=== PATIENT | female | born 1990 | race American Indian/Alaskan Native ===

== ENCOUNTER 2018-10-29 05:10 | Emergency (ER) | payer BC ==
[2018-10-29] MEDS ORDERED: MAGNE/ALUM HYDROXD 30 ML UCUP ONE (05:46)
[2018-10-29] MEDS ORDERED: LIDOCAINE VISCOUS 2% SOLN 15 ML UDC ONE (05:46)
[2018-10-29] MEDS ORDERED: ONDANSETRON 4 MG/2 ML VIAL ONE (06:57)
[2018-10-29] MEDS ORDERED: NA CHLORIDE 0.9% 1,000 ML ONE (06:57)
[2018-10-29] MEDS ORDERED: MORPHINE 2 MG/ML SYR ONE (07:00)
[2018-10-29] MEDS ORDERED: PANTOPRAZOLE 40 MG INJ ONE (07:00)
[2018-10-29 07:14] LABS: Absolute Lymphocytes (CBC) 2.1 K/uL (0.7-4.9); Absolute Monocytes 0.7 K/uL (0.1-1.3); Basophils % 0.5 % (0-1.3); Eosinophils % 2.2 % (0-4.4); Hematocrit 37.2 % (36.0-45.0); Lymphocytes % 29.8 % (15.3-44.8); MPV 10.9 fL (7.6-11.3); Monocytes % 10.5 % (3.3-12.3); RBC Red Blood Cell Count 4.59 M/uL (3.86-4.86)
--- NOTE | 2018-10-29 07:16 | ER ---
Nurse's Notes [facility] Name: [facility] Age: 27 yrs Sex: Female : 1990 Arrival Date: 10/29/2018 Time: 05:12 Bed 7 Private MD: Daisy Jimenez K Diagnosis: Gastritis, unspecified Presentation: 10/29 05:24 Presenting complaint: Patient states: she started having chest pain yesterday worsening bb today pt is pointing to epigastric area and says the pain is constant 6/10 pt denies nausea, vomiting or diarrhea but does have some shortness of breath. Transition of care: patient was not received from another setting of care. Onset of symptoms was October 28, 2018. Risk Assessment: Do you want to hurt yourself or someone else? Patient reports no desire to harm self or others. Initial Sepsis Screen: Does the patient meet any 2 criteria? No. Patient's initial sepsis screen is negative. Does the patient have a suspected source of infection? No. Patient's initial sepsis screen is negative. Care prior to arrival: None. 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 - Social history:: Smoking status: Patient/guardian denies using tobacco, Patient uses alcohol, occasionally. Patient/guardian denies using street drugs. - Ebola Screening: : No symptoms or risks identified at this time. Screenin:41 Abuse screen: Denies threats or abuse. Denies injuries from another. Nutritional ak1 screening: No deficits noted. Tuberculosis screening: No symptoms or risk factors identified. Fall Risk None identified. Assessment: 05:39 Pain: Pain began. ak1 05:41 General: Appears in no apparent distress. Behavior is calm, cooperative. Pain: Pain ak1 does not radiate. pt points to epigastric area when asked about pain. pt state she had taco bautista for dinner last night. Neuro: No deficits noted. Cardiovascular: No deficits noted. Respiratory: No deficits noted. GI: Reports epigastric pain. : No signs and/or symptoms were reported regarding the genitourinary system. EENT: No signs and/or symptoms were reported regarding the EENT system. Derm: No signs and/or symptoms reported regarding the dermatologic system. Musculoskeletal: No signs and/or symptoms reported regarding the musculoskeletal system. 06:14 Reassessment: Patient appears in no apparent distress at this time. Patient and/or ak1 family updated on plan of care and expected duration. Pain level reassessed. Patient is alert, oriented x 3, equal unlabored respirations, skin warm/dry/pink. 07:41 Reassessment: Patient appears in no apparent distress at this time. Patient and/or ph family updated on plan of care and expected duration. Pain level reassessed. Patient is alert, oriented x 3, equal unlabored respirations, skin warm/dry/pink. Pt d/c home w/ family. Vital Signs: 05:28 BP 134 / 89; Pulse 78; Resp 16 S; Temp 99.3(O); Pulse Ox 100% on R/A; Weight 88.45 kg bb (R); Height 5 ft. 5 in. (165.10 cm) (R); Pain 6/10; 06:14 BP 119 / 90; Pulse 78; Resp 16; Pulse Ox 98% on R/A; ak1 07:01 BP 125 / 76; Pulse 100; Resp 18; Pulse Ox 99% on R/A; tl2 07:43 BP 127 / 82; Pulse 81; Resp 18; Temp 98.0; Pulse Ox 99% on R/A; ph 05:28 Body Mass Index 32.45 (88.45 kg, 165.10 cm) bb ED Course: 05:12 Patient arrived in ED. es 05:12 Daisy Jimenez MD is Private Physician. es 05:27 Triage completed. bb 05:28 Arm band placed on Patient placed in an exam room, on a stretcher, on pulse oximetry. bb 05:30 Slick Cline MD is Attending Physician. tw4 05:38 Patient has correct armband on for positive identification. Bed in low position. Call ak1 light in reach. Side rails up X 1. Pulse ox on. NIBP on. 05:38 Patient maintains SpO2 saturation greater than 95% on room air. ak1 06:30 Inserted saline lock: 20 gauge in right antecubital area, using aseptic technique. tl2 Blood collected. 07:15 Daisy Jimenez MD is Referral Physician. tw4 07:16 Charity Salvador RN is Primary Nurse. ph 07:41 No provider procedures requiring assistance completed. IV discontinued, intact, ph bleeding controlled, No redness/swelling at site. Pressure dressing applied. Administered Medications: 05:38 Drug: GI Cocktail without - (Maalox Suspension 30 ml, Lidocaine Liquid 2 % 15 ak1 ml) Route: PO; 07:00 Follow up: Response: No adverse reaction tl2 06:59 Drug: ProTONIX 40 mg Route: IVP; Site: right antecubital; tl2 07:42 Follow up: Response: No adverse reaction ph 06:59 Drug: Zofran 4 mg Route: IVP; Site: right antecubital; tl2 07:42 Follow up: Response: No adverse reaction ph 06:59 Drug: morphine 2 mg Route: IVP; Site: right antecubital; tl2 07:42 Follow up: Response: No adverse reaction ph 07:00 Drug: NS 0.9% 1000 ml Route: IV; Rate: 1 bolus; Site: right antecubital; tl2 07:42 Follow up: Response: No adverse reaction; IV Status: Completed infusion ph Outcome: 07:16 Discharge ordered by . tw4 07:41 Discharged to home ambulatory, with family. ph 07:41 Condition: good 07:41 Discharge instructions given to patient, Instructed on discharge instructions, follow up and referral plans. medication usage, Demonstrated understanding of instructions, follow-up care, medications, Prescriptions given X 2. 07:44 Patient left the ED. ph Signatures: Marcie Roach Brenda RN RN Luzma Jackson RN RN ak1 Charity Salvador RN RN ph Knox, Taylor, RN RN tl2 Slick Cline MD MD tw4
--- NOTE | 2018-10-29 07:17 | EDPHYS ---
Physician Documentation [facility] Name: [facility] Age: 27 yrs Sex: Female : 1990 Arrival Date: 10/29/2018 Time: 05:12 Bed 7 Private MD: Daisy Jimenez K ED Physician Slick Cline HPI: 10/29 05:37 This 27 yrs old Other Female presents to ER via Ambulatory with complaints of Chest tw4 Pain. 05:37 The pain does not radiate. Associated signs and symptoms: The patient has no apparent tw4 associated signs or symptoms. The chest pain is described as dull. Duration: epigastric area, The patient or guardian reports a single episode, that is now resolved. Modifying factors: The symptoms are alleviated by nothing. the symptoms are aggravated by nothing. The patient has not experienced similar symptoms in the past. 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 - Social history:: Smoking status: Patient/guardian denies using tobacco, Patient uses alcohol, occasionally. Patient/guardian denies using street drugs. - Ebola Screening: : No symptoms or risks identified at this time. ROS: 05:37 Constitutional: Negative for fever, chills, and weight loss, Cardiovascular: Negative tw4 for chest pain, palpitations, and edema, Respiratory: Negative for shortness of breath, cough, wheezing, and pleuritic chest pain, Back: Negative for injury and pain, MS/Extremity: Negative for injury and deformity, Skin: Negative for injury, rash, and discoloration, Neuro: Negative for headache, weakness, numbness, tingling, and seizure. Exam: 05:37 Constitutional: This is a well developed, well nourished patient who is awake, alert, tw4 and in no acute distress. Head/Face: Normocephalic, atraumatic. Chest/axilla: Normal chest wall appearance and motion. Nontender with no deformity. No lesions are appreciated. Cardiovascular: Regular rate and rhythm with a normal S1 and S2. No gallops, murmurs, or rubs. Normal PMI, no JVD. No pulse deficits. Respiratory: Lungs have equal breath sounds bilaterally, clear to auscultation and percussion. No rales, rhonchi or wheezes noted. No increased work of breathing, no retractions or nasal flaring. Back: No spinal tenderness. No costovertebral tenderness. Full range of motion. MS/ Extremity: Pulses equal, no cyanosis. Neurovascular intact. Full, normal range of motion. Neuro: Awake and alert, GCS 15, oriented to person, place, time, and situation. Cranial nerves II-XII grossly intact. Motor strength 5/5 in all extremities. Sensory grossly intact. Cerebellar exam normal. Normal gait. 05:37 Abdomen/GI: Inspection: abdomen appears normal, Bowel sounds: normal, Palpation: mild abdominal tenderness, in the epigastric area. Vital Signs: 05:28 BP 134 / 89; Pulse 78; Resp 16 S; Temp 99.3(O); Pulse Ox 100% on R/A; Weight 88.45 kg bb (R); Height 5 ft. 5 in. (165.10 cm) (R); Pain 6/10; 06:14 BP 119 / 90; Pulse 78; Resp 16; Pulse Ox 98% on R/A; ak1 07:01 BP 125 / 76; Pulse 100; Resp 18; Pulse Ox 99% on R/A; tl2 07:43 BP 127 / 82; Pulse 81; Resp 18; Temp 98.0; Pulse Ox 99% on R/A; ph 05:28 Body Mass Index 32.45 (88.45 kg, 165.10 cm) MDM: 05:30 Patient medically screened. tw4 10/30 04:56 Differential diagnosis: herpes zoster, hiatal hernia, pulmonary embolus, stable angina. tw4 Data reviewed: vital signs, nurses notes. Data interpreted: Pulse oximetry: Interpretation: normal. Counseling: I had a detailed discussion with the patient and/or guardian regarding: the historical points, exam findings, and any diagnostic results supporting the discharge/admit diagnosis, lab results, radiology results. Medication response: GI Cocktail partially relieved the patient's pain, morphine relieved the patient's pain. Symptoms have resolved. Special discussion: Based on the patient's Hx, exam, and Dx evaluation, there is no indication for emergent surgery or inpatient Tx. It is understood by the patient/guardian that if the Sx's persist or worsen they need to return immediately for re-evaluation. I discussed with the patient/guardian in detail that at this point there is no indication for admission to the hospital. It is understood, however, that if the symptoms persist or worsen the patient needs to return immediately for re-evaluation. 10/29 06:36 Order name: Basic Metabolic Panel tw4 10/29 06:36 Order name: CBC with Diff tw4 10/29 06:36 Order name: Creatinine for Radiology; Complete Time: 07:15 tw4 10/29 06:36 Order name: Hepatic Function 4 10/29 06:36 Order name: Lipase tw4 10/29 06:36 Order name: IV Saline Lock; Complete Time: 06:44 tw4 10/29 06:36 Order name: Labs collected and sent; Complete Time: 06:44 tw4 Administered Medications: 10/29 05:38 Drug: GI Cocktail without - (Maalox Suspension 30 ml, Lidocaine Liquid 2 % 15 ak1 ml) Route: PO; 07:00 Follow up: Response: No adverse reaction tl2 06:59 Drug: ProTONIX 40 mg Route: IVP; Site: right antecubital; tl2 07:42 Follow up: Response: No adverse reaction ph 06:59 Drug: Zofran 4 mg Route: IVP; Site: right antecubital; tl2 07:42 Follow up: Response: No adverse reaction ph 06:59 Drug: morphine 2 mg Route: IVP; Site: right antecubital; tl2 07:42 Follow up: Response: No adverse reaction ph 07:00 Drug: NS 0.9% 1000 ml Route: IV; Rate: 1 bolus; Site: right antecubital; tl2 07:42 Follow up: Response: No adverse reaction; IV Status: Completed infusion ph Disposition: 10/29/18 07:16 Discharged to Home. Impression: Gastritis, unspecified. - Condition is Stable. - Discharge Instructions: Gastritis, Adult, [id number]. - Prescriptions for Carafate 1 gram Oral Tablet - take 1 tablet by ORAL route 4 times per day take on an empty stomach, beginning on waking and last dose at bedtime; 100 tablet. Protonix 40 mg Oral Tablet - take 1 tablet by ORAL route once daily; 30 tablet. - Work release form, Medication Reconciliation Form, Thank You Letter, Antibiotic Education, Prescription Opioid Use form. - Follow up: Daisy Jimenez MD; When: Upon discharge from the Emergency Department; Reason: If symptoms return, Recheck today's complaints, Continuance of care. - Problem is new. - Symptoms have improved. Signatures: Dispatcher [employer] EDMS Diana Santana RN RN Luzma Resendiz RN RN ak1 Charity Salvador RN RN Metcalf, Adele, RN RN tl2 Slick Cline MD MD tw4 Corrections: (The following items were deleted from the chart) 07:44 07:16 10/29/2018 07:16 Discharged to Home. Impression: Gastritis, unspecified. ph Condition is Stable. Forms are Medication Reconciliation Form, Thank You Letter, Antibiotic Education, Prescription Opioid Use. Follow up: Daisy Jimenez; When: Upon discharge from the Emergency Department; Reason: If symptoms return, Recheck today's complaints, Continuance of care. Problem is new. Symptoms have improved. tw4
[2018-10-29 07:18] LABS: Albumin 3.5 g/dL (3.4-5.0); Bilirubin Direct 0.2 mg/dL (0-0.2); Bilirubin Total 0.5 mg/dL (0.2-1.0); Potassium 3.8 mmol/L (3.5-5.1); Protein, Total 7.5 g/dL (6.4-8.2)
== END 2018-10-29 07:44 | disposition home or self-care (01) ==
LOC: ER 05:10
DX: K29.70 Gastritis, unspecified, without bleeding (principal)
CPT/HCPCS: 36415; 80048; 80076; 83690; 85025; 96361; 96374; 96375; 99284; C9113; J2270; J2405; J7030